=== PATIENT | male | born 1970 | race Caucasian/White ===

== ENCOUNTER 2022-06-21 10:59 | Emergency (ER) | payer BC, OTHER ==
--- NOTE | 2022-06-21 12:49 | ED Physician Documentation ---
PD HPI URI - Stated complaint Stated Complaint: H/A,SINUS PX,BROWNISH DC FROM NOSE - Chief complaint Chief Complaint: Heent - History obtained from History obtained from: Patient - History of Present Illness Timing - onset: How many days ago (several days of right maxillary pressure/pain, with upper teeth hurting, and purulent draiange right nostril. No eye pain.) Timing duration: Days Timing details: Gradual onset, Still present Associated symptoms: Nasal congestion, Sinus pain (right maxillary). No: Fever Contributing factors: No: Sick contact, Immunocompromised Similar symptoms before: Has not had sx before Recently seen: Not recently seen Review of Systems Constitutional: denies: Fever Nose: reports: Rhinorrhea / runny nose, Congestion, Sinus pressure / pain (with purulent and bloody discharge right nostril with saline irrigation.) Throat: reports: Dental pain / toothache (right upper teeth hurting, and also a cracked one hurting right lower. no gum swelling.). denies: Sore throat Cardiac: denies: Chest pain / pressure Respiratory: denies: Dyspnea, Cough PD PAST MEDICAL HISTORY - Past Medical History Cardiovascular: None Respiratory: None Neuro: None Endocrine/Autoimmune: None - Present Medications Home Medications: Ambulatory Orders Medication Instructions Recorded Confirmed Amox/Clav 875/125 [Augmentin] 1 each PO Q12H #14 tablet 06/21/22 Cetirizine [ZyrTEC] 10 mg PO DAILY #15 tablet 06/21/22 - Allergies Allergies/Adverse Reactions: Allergies Allergy/AdvReac Type Severity Reaction Status Date / Time No Known Drug Allergies Allergy Verified 06/21/22 11:17 PD ED PE NORMAL - Vitals Vital signs reviewed: Yes - General General: Alert and oriented X 3, Well developed/nourished - HEENT HEENT: EOMI (without pain), Ears normal, Moist mucous membranes, Pharynx benign. No: Dentition benign (riht lower orly with cracked tooth but no gum swelling. Upper gums without tender/swelling. ) - Neck Neck: Supple, no meningeal sign, No adenopathy - Cardiac Cardiac: RRR, No murmur - Derm Derm: Normal color, Warm and dry Results - Vitals Vitals: Vital Signs - 24 hr 06/21/22 06/21/22 11:10 13:48 Temperature 37.0 C 37.0 C Heart Rate 85 81 Respiratory 14 16 Rate Blood Pressure 146/87 H 146/80 H O2 Saturation 98 100 Oxygen O2 Source Room air PD MEDICAL DECISION MAKING - ED course Complexity details: considered differential, d/w patient Departure - Departure Disposition: 01 Home, Self Care Clinical Impression: Sinusitis, acute Qualifiers: Sinusitis location: maxillary Recurrence: non-recurrent Qualified Code(s): J01.00 - Acute maxillary sinusitis, unspecified Condition: Stable Record reviewed to determine appropriate education?: Yes Instructions: ED Sinusitis Abx Tx Prescriptions: Amox/Clav 875/125 [Augmentin] 1 each PO Q12H #14 tablet Cetirizine [ZyrTEC] 10 mg PO DAILY #15 tablet Comments: This does sound like a sinus infection as you suggest. We can treat this with Augmentin antibiotic twice daily for a week. I would continue with the cleansing of the nasal passage with saline spray or saline rinse to promote further drainage out. You could also consider cetirizine antihistamine to help with some of the ongoing congestion of the nasal passage. We did give you a single dose of a anti-inflammatory here and hopefully that will help over the next couple of days as well. Tylenol if needed for pains or fevers. Recheck if not improving well over the next several days. I sent your prescription to [facility] pharmacy in [place]. Discharge Date/Time: 06/21/22 13:52
[2022-06-21] MEDS ORDERED: DEXAMETHASONE 10 MG/ML VIAL PO STA (13:38)
[2022-06-21] MEDS ORDERED: AMOX/CLAV 875 MG/125 MG TABLET PO STA (13:38)
[2022-06-21] MEDS ORDERED: CHERRY SYRUP 10 ML UDC PO ONE (13:38)
[2022-06-21] MEDS ORDERED: CETIRIZINE 10 MG TABLET PO STA (13:38)
[2022-06-21 13:49] VITALS: BP 146/80
== END 2022-06-21 13:52 | disposition home or self-care (01) ==
LOC: ED 10:59
DX: J01.00 Acute maxillary sinusitis, unspecified (principal)
CPT/HCPCS: 99282; A9270

== ENCOUNTER 2022-08-20 21:50 | Emergency (ER) | payer OTHER ==
[2022-08-20] MEDS ORDERED: ASPIRIN CHEW 81 MG TABLET PO STA (22:14)
[2022-08-20 22:20] LABS: BASOPHILS # (AUTO) 0.1 10^3/uL (0.0-0.1); BASOPHILS % (AUTO) 0.7 %; EOSINOPHILS # (AUTO) 0.2 10^3/uL (0.0-0.7); EOSINOPHILS % (AUTO) 2.5 %; HCT - HEMATOCRIT 44.7 % (42.0-52.0); HGB - HEMOGLOBIN 14.8 g/dL (14.0-18.0); LYMPHOCYTES # (AUTO) 3.9 10^3/uL (1.5-3.5); LYMPHOCYTES % (AUTO) 42.6 %; MEAN CORPUSCULAR HEMOGLOBIN 29.8 pg (27.0-31.0); MEAN CORPUSCULAR HGB CONC 33.1 g/dL (32.0-36.0); MEAN CORPUSCULAR VOLUME 90.1 fL (80.0-94.0); MEAN PLATELET VOLUME 10.2 fL (7.4-11.4); MONOCYTES # (AUTO) 0.8 10^3/uL (0.0-1.0); MONOCYTES % (AUTO) 8.2 %; NEUTROPHILS # (AUTO) 4.2 10^3/uL (1.5-6.6); NEUTROPHILS % (AUTO) 45.8 %; PLT - PLATELET COUNT 269 10^3/uL (130-450); RED BLOOD COUNT 4.96 10^6/uL (4.70-6.10); RED CELL DISTRIBUTION WIDTH 12.4 % (12.0-15.0); WHITE BLOOD COUNT 9.2 x10^3/uL (4.8-10.8)
[2022-08-20 22:36] LABS: ALBUMIN 4.4 g/dL (3.2-5.5); ALBUMIN/GLOBULIN RATIO 1.4 (1.0-2.2); BILIRUBIN,TOTAL 0.7 mg/dL (0.2-1.0); CALCIUM 9.2 mg/dL (8.5-10.3); CREATININE 1.1 mg/dL (0.6-1.2); POTASSIUM 3.8 mmol/L (3.5-5.0); TOTAL PROTEIN 7.5 g/dL (6.7-8.2)
--- NOTE | 2022-08-20 22:57 | XRAY Report ---
PROCEDURE: Chest 1 View X-Ray INDICATIONS: CP TECHNIQUE: One view of the chest was acquired. COMPARISON: None. FINDINGS: Surgical changes and devices: None. Lungs and pleura: No pleural effusions or pneumothorax. Lungs are clear. Mediastinum: Mediastinal contours appear normal. Heart size is normal. Bones and chest wall: No suspicious bony lesions. Overlying soft tissues appear unremarkable. IMPRESSION: Normal for age, source of chest pain is not identified. Reviewed by: Jose Juan Belcher MD on 08/20/2022 10:56 PM [facility] Approved by: Jose Juan Belcher MD on 08/20/2022 10:56 PM [facility] Station ID: [id number]
[2022-08-20] MEDS: ENOXAPARIN 80 MG/0.8 ML SYRINGE SUBQ SCH (23:47)
[2022-08-21] MEDS ORDERED: ONDANSETRON 4 MG/2 ML VIAL IVP PRN (01:19)
[2022-08-21] MEDS ORDERED: ACETAMINOPHEN 500 MG TABLET PO PRN (01:19)
--- NOTE | 2022-08-21 01:30 | ED Physician Documentation ---
PD HPI CHEST PAIN - Stated complaint Stated Complaint: CHEST PX - Chief complaint Chief Complaint: Cardiac - History obtained from History obtained from: Patient - Additional information Additional information: Patient is a 52-year-old male with no significant past medical history presenting for evaluation of chest pain that started this evening approximately 1 hour ago. He feels on the left side of his chest and it feels like a sharp pressure and radiates to the left arm. It lasted for 20 minutes.It has since resolved and not recurred. He had just gotten up from watching TV and was walking in his house. He reports having episodes of chest pain for the last week when he is walking his dog.Prior to that he has not had episodes of chest pain and relays that he is usually active such as cycling during [place] where he had no chest pain.He denies a history of hypertension or diabetes. He has borderline high cholesterol. He denies prior history of cardiac problems or ever having seen a foil cutter. He does not smoke. He drinks occasionally. He denies drug use.He says that since having COVID 2 months ago he has continued to have some fatigue. Review of Systems Constitutional: denies: Fever Cardiac: reports: Chest pain / pressure. denies: Palpitations Respiratory: denies: Dyspnea, Cough GI: denies: Abdominal Pain, Vomiting : denies: Dysuria Musculoskeletal: denies: Back pain Neurologic: denies: Headache PD PAST MEDICAL HISTORY - Past Medical History Cardiovascular: None Respiratory: None Neuro: None Endocrine/Autoimmune: None - Present Medications Home Medications: Ambulatory Orders Medication Instructions Recorded Confirmed Amox/Clav 875/125 [Augmentin] 1 each PO Q12H #14 tablet 06/21/22 Cetirizine [ZyrTEC] 10 mg PO DAILY #15 tablet 06/21/22 - Allergies Allergies/Adverse Reactions: Allergies Allergy/AdvReac Type Severity Reaction Status Date / Time No Known Drug Allergies Allergy Verified 08/20/22 21:58 PD ED PE NORMAL - General General: Alert and oriented X 3, No acute distress, Well developed/nourished - HEENT HEENT: Atraumatic - Neck Neck: Supple, no meningeal sign - Cardiac Cardiac: RRR, No murmur, Strong equal pulses - Respiratory Respiratory: No respiratory distress, Clear bilaterally - Abdomen Abdomen: Soft, Non tender - Derm Derm: Warm and dry - Extremities Extremities: No edema, No calf tenderness / cord - Neuro Neuro: Normal speech Results - Vitals Vitals: Vital Signs - 24 hr 08/20/22 08/20/22 08/20/22 21:52 21:58 23:34 Temperature 2.1 C L 37.4 C Heart Rate 73 97 Respiratory 17 Rate Blood Pressure 159/94 H 132/89 H O2 Saturation 99 97 08/21/22 08/21/22 03:54 06:29 Temperature Heart Rate 69 79 Respiratory 14 17 Rate Blood Pressure 113/79 108/74 O2 Saturation 97 95 Oxygen O2 Source Room air - EKG (time done) 2157 Rate: Rate (enter#) (82) Rhythm: NSR [place]: Normal Ischemia: ST depression. No: ST elevation c/w ischemia Compare to prior EKG: Old EKG unavailable - Labs Labs: Laboratory Tests 08/20/22 08/20/22 08/20/22 22:03 22:03 22:03 WBC 9.2 RBC 4.96 Hgb 14.8 Hct 44.7 MCV 90.1 MCH 29.8 MCHC 33.1 RDW 12.4 Plt Count 269 MPV 10.2 Neut # (Auto) 4.2 Lymph # (Auto) 3.9 H [place] # (Auto) 0.8 Eos # (Auto) 0.2 Baso # (Auto) 0.1 Absolute Nucleated RBC 0.00 Nucleated RBC % 0.0 PT INR Sodium 138 Potassium 3.8 Chloride 102 Carbon Dioxide 26 Anion Gap 10.0 BUN 16 Creatinine 1.1 Estimated GFR (MDRD) 71 L Glucose 106 H Calcium 9.2 Total Bilirubin 0.7 AST 24 ALT 37 Alkaline Phosphatase 79 Troponin I High Sens 208.0 H* Total Protein 7.5 Albumin 4.4 Globulin 3.1 Albumin/Globulin Ratio 1.4 SARS-CoV-2 (PCR) 08/20/22 08/21/22 08/21/22 23:32 01:42 01:42 WBC RBC Hgb Hct MCV MCH MCHC RDW Plt Count MPV Neut # (Auto) Lymph # (Auto) [place] # (Auto) Eos # (Auto) Baso # (Auto) Absolute Nucleated RBC Nucleated RBC % PT 12.1 INR 1.1 Sodium Potassium Chloride Carbon Dioxide Anion Gap BUN Creatinine Estimated GFR (MDRD) Glucose Calcium Total Bilirubin AST ALT Alkaline Phosphatase Troponin I High Sens 224.4 H* Total Protein Albumin Globulin Albumin/Globulin Ratio SARS-CoV-2 (PCR) NOT DETECTED 08/21/22 08/21/22 08/21/22 05:09 05:09 05:09 WBC 7.5 RBC 4.67 L Hgb 14.0 Hct 41.8 L MCV 89.5 MCH 30.0 MCHC 33.5 RDW 12.2 Plt Count 248 MPV 10.2 Neut # (Auto) 3.4 Lymph # (Auto) 3.3 [place] # (Auto) 0.6 Eos # (Auto) 0.2 Baso # (Auto) 0.0 Absolute Nucleated RBC 0.00 Nucleated RBC % 0.0 PT INR Sodium 137 Potassium 4.1 Chloride 105 Carbon Dioxide 26 Anion Gap 6.0 BUN 18 Creatinine 1.0 Estimated GFR (MDRD) 79 L Glucose 107 H Calcium 8.6 Total Bilirubin AST ALT Alkaline Phosphatase Troponin I High Sens 229.5 H* Total Protein Albumin Globulin Albumin/Globulin Ratio SARS-CoV-2 (PCR) PD Medical Decision Making - ED course Complexity details: reviewed results, re-evaluated patient, d/w patient, d/w family ED course: Patient presenting for evaluation of chest pain. This evening's episode started as he had just gotten up from the couch and was walking but in the last week he has had several episodes with exertion when walking his dog. The pain does radiate to his left arm. EKG is reviewed and demonstrates a sinus rhythm without ST elevation. His chest x-ray is clear. His initial troponin is elevated at 208. Given his recent episodes of chest pain with exertion and now today with minimal exertion I have concerns for unstable angina/NSTEMI.I discussed this with the patient and his family at the bedside and recommend transfer to facility for further cardiac testing or procedure.In the meanwhile I will start the patient on Lovenox twice a day, metoprolol, atorvastatin. He will continue on aspirin. He remains pain-free here. Repeated troponins have slightly increased but not significantly.However given the patient's symptoms and abnormal troponin with no priors I do feel he continues to warrant transfer for cardiology evaluation. Patient has been placed on area wait list. Unfortunately there is a region wide bed shortage and transfer may take some time which patient and his family are aware of.Patient will be signed out at shift change. - Critical Care Time(min): 31 Time Includes: Direct patient care, Reassess patient, Document care Departure - Departure Disposition: 02 Transfer Acute Care Hosp Clinical Impression: NSTEMI (non-ST elevated myocardial infarction)
[2022-08-21 01:54] LABS: INR 1.1 (0.8-1.2); PT - PROTHROMBIN TIME 12.1 secs (9.9-12.6)
[2022-08-21 05:24] LABS: BASOPHILS % (AUTO) 0.5 %; EOSINOPHILS # (AUTO) 0.2 10^3/uL (0.0-0.7); EOSINOPHILS % (AUTO) 3.2 %; HCT - HEMATOCRIT 41.8 % (42.0-52.0); LYMPHOCYTES # (AUTO) 3.3 10^3/uL (1.5-3.5); LYMPHOCYTES % (AUTO) 43.3 %; MEAN CORPUSCULAR HGB CONC 33.5 g/dL (32.0-36.0); MEAN CORPUSCULAR VOLUME 89.5 fL (80.0-94.0); MEAN PLATELET VOLUME 10.2 fL (7.4-11.4); MONOCYTES # (AUTO) 0.6 10^3/uL (0.0-1.0); MONOCYTES % (AUTO) 7.4 %; NEUTROPHILS # (AUTO) 3.4 10^3/uL (1.5-6.6); NEUTROPHILS % (AUTO) 45.5 %; PLT - PLATELET COUNT 248 10^3/uL (130-450); RED BLOOD COUNT 4.67 10^6/uL (4.70-6.10); RED CELL DISTRIBUTION WIDTH 12.2 % (12.0-15.0); WHITE BLOOD COUNT 7.5 x10^3/uL (4.8-10.8)
[2022-08-21 05:36] LABS: CALCIUM 8.6 mg/dL (8.5-10.3); POTASSIUM 4.1 mmol/L (3.5-5.0)
[2022-08-21] MEDS: PANTOPRAZOLE 40 MG TABLET PO SCH (06:28)
[2022-08-21] MEDS: ATORVASTATIN 40 MG TABLET PO SCH (09:39)
[2022-08-21] MEDS: ASPIRIN CHEW 81 MG TABLET PO SCH (09:39)
[2022-08-21] MEDS: METOPROLOL TARTRATE 25 MG TABLET PO SCH ×2 (09:39→21:17)
[2022-08-21] MEDS: ENOXAPARIN 100 MG/ML SYRINGE SUBQ SCH ×2 (11:38→21:30)
[2022-08-21] MEDS: ENOXAPARIN 80 MG/0.8 ML SYRINGE SUBQ SCH (12:14)
--- NOTE | 2022-08-21 17:09 | ED Physician Documentation ---
ED Addendum - Addendum Addendum: 08/21/22 17:07 I have personally evaluated the patient who continues to board in the emergency department pending bed availability to outside facility for transfer of NSTEMI. This gentleman has been started on Lovenox, daily aspirin, atorvastatin as well as metoprolol. He has been free of chest pain. I have evaluated his vital signs and he is without tachycardia or hypotension. He has remained sinus rhythm on the monitor without any ectopy or arrhythmia noted. I have evaluated his troponins which have peaked at 229. Most recent was 129. I did spend some time speaking with the about the diagnosis of an NSTEMI and the need for further cardiology evaluation and possible intervention. However given the paucity of beds regionally it is likely He will continue to board until either a bed becomes available or he is medically discharged assuming he remains stable.
[2022-08-22] MEDS: PANTOPRAZOLE 40 MG TABLET PO SCH (06:39)
[2022-08-22] MEDS: METOPROLOL TARTRATE 25 MG TABLET PO SCH ×2 (08:44→21:01)
[2022-08-22] MEDS: ASPIRIN CHEW 81 MG TABLET PO SCH (08:44)
[2022-08-22] MEDS: ATORVASTATIN 40 MG TABLET PO SCH (08:44)
[2022-08-22] MEDS: ENOXAPARIN 100 MG/ML SYRINGE SUBQ SCH ×2 (08:45→21:00)
--- NOTE | 2022-08-22 09:00 | ED Physician Documentation ---
ED Addendum - Addendum Addendum: 08/22/22 08:57 The patient is comfortable this morning. He did receive his morning me dications. Vitals are good. He denies any chest pain here in the ER. He had noted his chest pain to be with light activity and in particular with walking the dogs over the weekend. It did not take significant exertion however to have the discomfort. He did bump his troponin up to the 200s and its been downtrending. The repeat troponin this morning was 74. He remains in sinus rhythm on monitor. He is of a young age and his symptoms are certainly concerning for unstable angina versus NH. He is at high risk of a more significant injury if this is unstable angina and as such needs more definitive evaluation and treatment. He is on the transfer list for [facility] and we will contact other facilities directly as well to try to facilitate transfer. He was advised to tell us if he has any chest pain at all here. He has been ordered for aspirin, statin, beta-consuelo, Lovenox.
--- NOTE | 2022-08-23 02:52 | ED Physician Documentation ---
ED Addendum - Addendum Addendum: 08/23/22 02:50 d/w [facility] transfer center and provided an update. They will have a mathematical engineering technician call back. 08/23/22 02:52 08/23/22 05:[address] Owens unable to take patient at [facility] due to being capped. [facility] and [facility] also boarding patients.
[2022-08-23] MEDS: PANTOPRAZOLE 40 MG TABLET PO SCH (06:36)
[2022-08-23] MEDS: METOPROLOL TARTRATE 25 MG TABLET PO SCH ×2 (08:33→20:44)
[2022-08-23] MEDS: ASPIRIN CHEW 81 MG TABLET PO SCH (08:36)
[2022-08-23] MEDS: ENOXAPARIN 100 MG/ML SYRINGE SUBQ SCH ×2 (08:36→20:44)
[2022-08-23] MEDS: ATORVASTATIN 40 MG TABLET PO SCH (08:36)
--- NOTE | 2022-08-23 10:15 | ED Physician Documentation ---
ED Addendum - Addendum Addendum: 08/23/22 10:14 The patient states he has had a vague chest discomfort without pain per se. Blood tests are showing a continuing decrease in his troponin so therefore not suggestive of persistent injury. However it is concerning with some discomfort vaguely. At this point were hoping still for transfer for more definitive staging and evaluation of his apparent unstable angina. We will try to get a assessment of heart function with an echo today.
--- NOTE | 2022-08-23 18:49 | ED Physician Documentation ---
ED Addendum - Addendum Addendum: 08/23/22 18:48 Patient continues to be asymptomatic in the emergency department. His echocardiogram was ordered and does not have any significant abnormalities. I did discuss the case with Dr. Gallo, our hospitalist here who also has a rehabilitation tech. She recommends continuing to monitor the patient and continue to attempt transfer for coronary angiogram. The patient's states that he has an appointment next Monday with the [facility] cardiology group. We will attempt to contact them tomorrow to see if they can possibly perform a coronary angiogram for this gentleman. He continues to be asymptomatic here. His troponin has nearly normalized, down to 28.
[2022-08-24] MEDS: PANTOPRAZOLE 40 MG TABLET PO SCH (06:43)
[2022-08-24] MEDS: ASPIRIN CHEW 81 MG TABLET PO SCH (10:13)
[2022-08-24] MEDS: ATORVASTATIN 40 MG TABLET PO SCH (10:13)
[2022-08-24] MEDS: METOPROLOL TARTRATE 25 MG TABLET PO SCH (10:13)
[2022-08-24] MEDS: ENOXAPARIN 100 MG/ML SYRINGE SUBQ SCH (10:13)
--- NOTE | 2022-08-24 12:39 | ED Physician Documentation ---
ED Addendum - Addendum Addendum: 08/24/22 12:38 Patient seen and examined at bedside. He is in bed with his next to him. I discussed the case with Dr. Curtis at the [facility]. He feels that given the time course, it would be an option for him to go home as an outpatient with medication adjustments and he would see him tonight virtually and plan for a cath next week. This was discussed with the patient and they are considering it. Specifically, if the patient were to be discharged, Dr. Curtis recommends the following. Aspirin 81 mg a day Atorvastatin 80 mg a day Change metoprolol to long-acting 25 mg a day Isosorbide mononitrate 30 mg once a day, Plavix 300 mg load and 75 mg a day 08/24/22 13:17 At this point patient wanting to stay in the department to talk with the seniour insight manager virtually tonight but may want discharge after that. 08/24/22 17:57 Subsequently they spoke with the seniour insight manager virtually and the plan is for him to go home for catheterization tomorrow morning as an outpatient. Patient and happy with this plan. They understand there is a small risk in going home but at this point seems minimal. 08/24/22 17:57 Disposition: Discharged home Condition: Stable
[2022-08-24] MEDS ORDERED: CLOPIDOGREL 300 MG TABLET PO STA (17:25)
[2022-08-24] MEDS ORDERED: ISOSORBIDE MONONITRATE ER 30 MG TABLET PO STA (17:57)
[2022-08-24] MEDS ORDERED: METOPROLOL SUCCINATE 25 MG TABLET PO STA (17:57)
[2022-08-24 18:16] VITALS: BP 110/72
== END 2022-08-24 18:22 | disposition home or self-care (01) ==
LOC: ED 21:50
DX: I21.4 Non-ST elevation (NSTEMI) myocardial infarction (principal); Z75.1 Person awaiting admission to adequate facility elsewhere; Z76.4 Other boarder to healthcare facility; Z20.822 Contact with and (suspected) exposure to COVID-19
CPT/HCPCS: 36415; 71045; 80048; 80053; 84484; 85025; 85610; 87635; 93005; 93306; 96372; 99284; 99291; A9270; J1650